=== PATIENT | male | born 1980 | race African-American/Black ===

== ENCOUNTER → 2017-12-25 | Outpatient (CLI) | payer OTHER | LOC: M SLEEP 20:02 | DX: G47.33 Obstructive sleep apnea (adult) (pediatric) (principal) | CPT/HCPCS: 95811 ==

== ENCOUNTER 2022-05-24 09:32 | Emergency (ER) | payer OTHER ==
[~2022-05-24] VITALS: Ht 180.3 cm; Wt 111.3 kg
[2022-05-24 09:33] VITALS: BP 137/86
[2022-05-24] MEDS ORDERED: ACET-683 PO (09:46)
== END 2022-05-24 14:04 | disposition home or self-care (01) ==
LOC: M ED 09:32
DX: M54.32 Sciatica, left side (principal)

== ENCOUNTER 2023-05-09 11:26 | Emergency (ER) | payer OTHER ==
[~2023-05-09] VITALS: Ht 180.3 cm; Wt 110.0 kg
[2023-05-09 11:27] VITALS: BP 132/80; TEMP 97.4; O2SAT 99
== END 2023-05-09 14:25 | disposition left against medical advice (07) ==
LOC: M ED 11:26
DX: Z53.21 Procedure and treatment not carried out due to patient leaving prior to being seen by health care provider (principal)

== ENCOUNTER → 2023-05-09 | Outpatient (REF) | payer OTHER ==
[~2023-05-09] MED LIST: ACET-683 PO
== END ==
LOC: M LAB REF 16:15
PROVIDERS: ATTEND Physician Assistant
DX: T14.8XXA Other injury of unspecified body region, initial encounter (principal); W57.XXXA Bitten or stung by nonvenomous insect and other nonvenomous arthropods, initial encounter

== ENCOUNTER 2024-07-23 04:21 | Emergency (ER) | payer OTHER ==
[~2024-07-23] VITALS: Ht 180.3 cm; Wt 104.5 kg
[2024-07-23 04:30] VITALS: BP 176/100; TEMP 97; O2SAT 97
[2024-07-23] MEDS: IBUPROFEN 600MG TAB PO ONE (05:39)
== END 2024-07-23 06:42 | disposition left against medical advice (07) ==
LOC: M ED 04:21
DX: Z53.21 Procedure and treatment not carried out due to patient leaving prior to being seen by health care provider (principal)